=== PATIENT | male | born 1985 | race Caucasian/White ===

== ENCOUNTER 2021-12-27 07:40 | Emergency (ER) | payer OTHER ==
[~2021-12-27] VITALS: Ht 185.4 cm; Wt 101.4 kg
[~2021-12-27 07:40] MED LIST: WEL75T PO; [UNRECOGNIZED DRUG - OTHER]
[2021-12-27 07:47] VITALS: BP 145/105
--- NOTE | 2021-12-27 07:55 | NUR ---
PT CAME UP TO ER REG TO LET THEM KNOW HE WAS LEAVING BECAUSE THE WAIT IS TO LONG. PT ABMULATED OUT OF ER LOBBY
== END 2021-12-27 07:56 | disposition left against medical advice (07) ==
LOC: ER 07:41
DX: R52 Pain, unspecified (principal); Z53.21 Procedure and treatment not carried out due to patient leaving prior to being seen by health care provider